=== PATIENT | female | born 1990 | race African-American/Black ===

== ENCOUNTER 2023-04-10 11:28 | Emergency (ER) | payer MEDICAID ==
[~2023-04-10] VITALS: Ht 149.9 cm; Wt 66.0 kg
[2023-04-10 11:40] VITALS: TEMP 98.1; O2SAT 99
[2023-04-10] MEDS ORDERED: ONDANSETRON HCL 4MG/2ML INJ IV STA (11:59)
[2023-04-10] MEDS ORDERED: KETOROLAC 30MG/ML VIAL IV STA (11:59)
[2023-04-10 12:26] LABS: BASOPHILS % 0.3 % (0.0-2.0); EOSINOPHILS % 7.3 % (0.0-5.0); HEMATOCRIT. 35.6 % (36.0-48.0); HEMOGLOBIN. 12.4 g/dL (12.0-16.0); LYMPHOCYTES % 24.9 % (20.0-50.0); MEAN CORPUSCULAR HEMOGLOBIN 29.8 pg (28.0-32.0); MEAN CORPUSCULAR HGB CONC 34.8 g/dL (31.0-37.0); MEAN CORPUSCULAR VOLUME 85.7 fL (81.0-99.0); MEAN PLATELET VOLUME 7.7 fl (7.4-10.4); MONOCYTES % 8.8 % (2.0-8.0); NEUTROPHILS % 58.7 % (40.0-76.0); PLATELET 264 x1000/uL (130-400); RED BLOOD CELL COUNT 4.16 mill/uL (4.2-5.4); RED CELL DISTRIBUTION WIDTH 14.7 % (11.6-14.6); WHITE BLOOD COUNT 7.8 x1000/uL (4.5-11.0)
[2023-04-10 12:34] LABS: CHLORIDE 106 mEq/L (98-107); INDEX HEMOLYSI 1 (1-3); INDEX ICTERIC 1 (1-4); INDEX LIPEMIC 1 (1-3); POTASSIUM 3.1 mEq/L (3.5-5.1); SODIUM 138 mEq/L (136-145)
[2023-04-10 12:40] LABS: ALANINE AMINOTRANSFERASE 18 IU/L (13-61); ALBUMIN 4.2 g/dL (3.4-5.0); ASPARTATE AMINOTRANSFERASE 14 IU/L (15-37); BILIRUBIN TOTAL 0.9 mg/dL (0.1-1.0); CALCIUM 9.5 mg/dL (8.5-10.1); CARBON DIOXIDE 31 mEq/L (21-32); CREATININE 0.7 mg/dL (0.6-1.3); GLUCOSE 99 mg/dL (70-105); PROTEIN TOTAL 7.9 g/dL (6.0-8.3); UREA NITROGEN BLOOD 14 mg/dL (7-21)
[2023-04-10 13:34] LABS: CLARITY URINE TURBID (CLEAR); COLOR URINE DARK YELLOW (YELLOW); GLUCOSE URINE NEGATIVE (NEGATIVE); KETONES URINE TRACE (NEGATIVE); LEUKOCYTE ESTERASE URINE 2+ (NEGATIVE); NITRITE URINE POSITIVE (NEGATIVE); OCCULT BLOOD URINE 3+ (NEGATIVE); PH URINE 5.5 (4.5-8.0); PROTEIN URINE 3+ (NEGATIVE); SPECIFIC GRAVITY URINE 1.026 (1.005-1.030)
[2023-04-10 13:48] LABS: HCG SCREEN NEGATIVE
[2023-04-10 14:15] LABS: SQUAMOUS EPITHELIAL CELL URINE 1+ /lpf (RARE/1+)
[2023-04-10] MEDS ORDERED: KETOROLAC 15MG/ML VIAL IV NR (14:15)
[2023-04-10] MEDS ORDERED: ONDANSETRON HCL 4MG/2ML INJ IV NR (14:15)
[2023-04-10 14:16] LABS: WBC URINE TNTC /hpf (0-2)
[2023-04-10 14:17] LABS: BACTERIA URINE 2+; MUCUS URINE 1+ /lpf (< = 2+); YEAST URINE NONE SEEN
[2023-04-10 14:19] VITALS: BP 115/67; PULSE 83; RESP 16
[2023-04-10] MEDS ORDERED: CEFTRIAXONE 1GM PREMIX 50 ML IV ONE (14:30)
[2023-04-10] MEDS ORDERED: POTASSIUM CHLORIDE 20MEQ TABLET SR PO ONE (14:30)
[2023-04-10] MEDS ORDERED: IOHEXOL-300 100 ML BOTTLE ONE (15:40)
[2023-04-10] MEDS ORDERED: CEFP200T13 MT (16:35)
== END 2023-04-10 16:26 | disposition left against medical advice (07) ==
LOC: ER 11:28
DX: N39.0 Urinary tract infection, site not specified (principal); E87.6 Hypokalemia; E03.9 Hypothyroidism, unspecified; M31.19 Other thrombotic microangiopathy; Q67.5 Congenital deformity of spine; Z98.890 Other specified postprocedural states
CPT/HCPCS: 36415; 74177; 80053; 81003; 81025; 84703; 85025; 87077; 87186; 96365; 96375; 99285; C1893; J0696; J1885; J2405; Q9967